=== PATIENT | male | born 1965 | race Two or more races ===

== ENCOUNTER 2016-11-30 13:58 | Emergency (ER) | payer OTHER ==
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
[2016-11-30 16:36] LABS: ABSOLUTE EOSINOPHILS # (AUTO) 0.4 10^3/uL (0.0-0.6); ABSOLUTE LYMPHOCYTES (AUTO) 1.4 10^3/uL (0.5-4.7); ABSOLUTE MONOCYTES (AUTO) 0.6 10^3/uL (0.1-1.4); ABSOLUTE NEUT (AUTO) 3.9 10^3/uL (1.7-8.2); BASOPHILS % (AUTO) 0.7 % (0-2); EOSINOPHILS % (AUTO) 6.5 % (0-6); HEMATOCRIT 42.7 % (37.9-51.0); HEMOGLOBIN 15.1 g/dL (13.5-17.0); HGB HCT DIFFERENCE 2.6; LYMPHOCYTES % (AUTO) 22.4 % (13-45); MEAN CORPUSCULAR HEMOGLOBIN 29.9 pg (27.0-33.4); MEAN CORPUSCULAR HGB CONC 35.4 g/dL (32.0-36.0); MEAN CORPUSCULAR VOLUME 84 fl (80-97); MONOCYTES % (AUTO) 9.2 % (3-13); RED BLOOD COUNT 5.05 10^6/uL (4.35-5.55); RED CELL DISTRIBUTION WIDTH 13.1 % (11.5-14.0); SEGMENTED NEUTROPHILS % (AUTO) 61.2 % (42-78); WHITE BLOOD COUNT 6.3 10^3/uL (4.0-10.5)
[2016-11-30 16:52] LABS: ANION GAP 16 (5-19); BLOOD UREA NITROGEN 15 mg/dL (7-20); CALCIUM 9.8 mg/dL (8.4-10.2); CARBON DIOXIDE 24 mmol/L (22-30); CHLORIDE 103 mmol/L (98-107); CREATINE KINASE 254 U/L (55-170); CREATININE RESULT 0.76 mg/dL (0.52-1.25); GLUCOSE 118 mg/dL (75-110); POTASSIUM 4.2 mmol/L (3.6-5.0); SODIUM 143.4 mmol/L (137-145)
[2016-11-30] MEDS ORDERED: NORMAL SALINE 1000 ML 1,000 ML IV ONE (18:02)
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
[2016-11-30 19:34] VITALS: BP 126/75
--- NOTE | 2016-11-30 19:53 | EKG REPORT ---
SEVERITY:- NORMAL ECG - SINUS RHYTHM : Confirmed by: Tom Major MD 30-Nov-2016 19:52:30
== END 2016-11-30 19:34 | disposition home or self-care (01) ==
LOC: ER 13:58
DX: R55 Syncope and collapse (principal); V89.2XXA Person injured in unspecified motor-vehicle accident, traffic, initial encounter
CPT/HCPCS: 93005; 99284; 96360; 36415; 82550; 85025; 80048; 84484; 71020; 93010; J7030

== ENCOUNTER 2020-08-21 12:52 | Emergency (ER) | payer OTHER ==
--- NOTE | 2020-08-21 13:58 | ER Document Report ---
ED Medical Screen (RME) - General Chief Complaint: Urinary Problem Stated Complaint: URINARY PROBLEM,FALL Time Seen by Provider: 08/21/20 13:50 Mode of Arrival: Ambulatory Information source: Patient Notes: Patient states he was getting out of the shower yesterday evening, slipped and fell hitting the toilet. Patient reports right lower back pain. Patient does report a history of chronic back pain although he had hematuria after the fall last night. Patient states today he did have some dysuria with voiding. Patient denies any nausea or vomiting. Patient states yesterday he did have some mild abdominal pain although that is gone at this time. Patient has a history of hypertension, previous kidney stones and is prediabetic. I have greeted and performed a rapid initial assessment of this patient. A comprehensive ED assessment and evaluation of the patient, analysis of test results and completion of the medical decision making process will be conducted by additional ED providers. TRAVEL OUTSIDE OF THE [place] IN LAST 30 DAYS: No - Related Data Allergies/Adverse Reactions: No Known Allergies Allergy (Verified 11/24/13 11:45) Past Medical History - Past Medical History Cardiac Medical History: Reports: Hx Hypertension Pulmonary Medical History: Reports: Hx Bronchitis Renal/ Medical History: Denies: Hx Peritoneal Dialysis GI Medical History: Reports: Hx Gastroesophageal Reflux Disease Past Surgical History: Reports: Hx Oral Surgery, Hx Orthopedic Surgery - bilat bunionectomy - Immunizations Hx Diphtheria, Pertussis, Tetanus Vaccination: No Physical Exam - Vital signs Vitals: Temp Pulse Resp BP Pulse Ox 98.3 F 80 18 155/81 H 96 08/21/20 13:19 08/21/20 13:19 08/21/20 13:19 08/21/20 13:19 08/21/20 13:19 - Back Back: Tender - Right lower lumbar tenderness, few scattered ecchymotic areas Course - Vital Signs Vital signs: Temp Pulse Resp BP Pulse Ox 98.3 F 80 18 155/81 H 96 08/21/20 13:19 08/21/20 13:19 08/21/20 13:19 08/21/20 13:19 08/21/20 13:19
[2020-08-21 16:27] LABS: ABSOLUTE EOSINOPHILS # (AUTO) 0.2 10^3/uL (0.0-0.6); ABSOLUTE LYMPHOCYTES (AUTO) 1.8 10^3/uL (0.5-4.7); ABSOLUTE MONOCYTES (AUTO) 0.3 10^3/uL (0.1-1.4); ABSOLUTE NEUT (AUTO) 2.4 10^3/uL (1.7-8.2); BASOPHILS % (AUTO) 0.6 % (0-2); EOSINOPHILS % (AUTO) 4.1 % (0-6); HEMATOCRIT 43.5 % (37.9-51.0); HEMOGLOBIN 15.6 g/dL (13.5-17.0); LYMPHOCYTES % (AUTO) 37.6 % (13-45); MEAN CORPUSCULAR HEMOGLOBIN 29.6 pg (27.0-33.4); MEAN CORPUSCULAR HGB CONC 35.9 g/dL (32.0-36.0); MEAN CORPUSCULAR VOLUME 82 fl (80-97); MONOCYTES % (AUTO) 6.8 % (3-13); PLATELET COUNT 176 10^3/uL (150-450); RED BLOOD COUNT 5.28 10^6/uL (4.35-5.55); RED CELL DISTRIBUTION WIDTH 12.8 % (11.5-14.0); SEGMENTED NEUTROPHILS % (AUTO) 50.9 % (42-78); TOTAL CELLS COUNTED % (AUTO) 100 %; WHITE BLOOD COUNT 4.7 10^3/uL (4.0-10.5)
[2020-08-21 16:46] LABS: ALBUMIN 4.1 g/dL (3.5-5.0); ALKALINE PHOSPHATASE 70 U/L (38-126); ANION GAP 6 (5-19); ASPARTATE AMINO TRANSFERASE 26 U/L (17-59); BILIRUBIN,DIRECT 0.1 mg/dL (0.0-0.4); BILIRUBIN,TOTAL 0.6 mg/dL (0.2-1.3); BLOOD UREA NITROGEN 15 mg/dL (7-20); CALCIUM 9.4 mg/dL (8.4-10.2); CARBON DIOXIDE 28 mmol/L (22-30); CHLORIDE 101 mmol/L (98-107); GLUCOSE 171 mg/dL (75-110); POTASSIUM 4.1 mmol/L (3.6-5.0); TOTAL PROTEIN 6.9 g/dL (6.3-8.2)
--- NOTE | 2020-08-21 18:30 | ER Document Report ---
ED GI/ - General Chief Complaint: Urinary Problem Stated Complaint: URINARY PROBLEM,FALL Time Seen by Provider: 08/21/20 13:50 Primary Care Provider: TEVIN HEBERT MD [Primary Care Provider] - Follow up as needed Mode of Arrival: Ambulatory Information source: Patient Notes: ED Medical Screen ([facility])) - General Chief Complaint: Urinary Problem Stated Complaint: URINARY PROBLEM,FALL Time Seen by Provider: 08/21/20 13:50 Mode of Arrival: Ambulatory Information source: Patient Notes: Patient states he was getting out of the shower yesterday evening, slipped and fell hitting the toilet. Patient reports right lower back pain. Patient does report a history of chronic back pain although he had hematuria after the fall last night. Patient states today he did have some dysuria with voiding. Patient denies any nausea or vomiting. Patient states yesterday he did have some mild abdominal pain although that is gone at this time. Patient has a history of hypertension, previous kidney stones and is prediabetic. 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 His pains are chronic and constant except ameliorated by Naprosyn which he takes daily. He had to have carpal tunnel surgery to his right wrist around 2 years ago and when he stopped this his pains became quite severe. Patient also has a history of pituitary tumor and he went to a male menopause problem more than a year ago with hot sweats and chills. Patient reports he has a history of kidney stones. He slipped and fell out of the shower yesterday grabbing hold of the curtains pulling them down from the angella and he landed on his buttocks on the bathroom toilet with his head striking the medicine cabinet. There is a wall between the bathroom and kitchen and his (who is in room now)was in the kitchen and heard the impact. He reports he has had at least 3 bouts of hematuria since this is occurred but his fourth and fifth yesterday was yellow urine. Today this morning around 1100 he had some urgency but hesitation on urination as if his urinary flow was blocked. He has to urinate at this time when I saw him at 1830. TRAVEL OUTSIDE OF THE [place] IN LAST 30 DAYS: No - HPI Patient complains to provider of: Hematuria, Other - head injury Onset: Yesterday Timing/Duration: Sudden, Persistent, Better Severity at maximum: Mild Severity in ED: Mild Pain Level: 1 Context: Recent trauma. denies: Bad food, Lifting, Location: Pelvis - Related Data Allergies/Adverse Reactions: No Known Allergies Allergy (Verified 11/24/13 11:45) Past Medical History - General Information source: Patient - Social History Smoking Status: Never Smoker Cigarette use (# per day): No Chew tobacco use (# tins/day): No Smoking Education Provided: No Frequency of alcohol use: None Drug Abuse: None Lives with: Family Family History: Malignancy - NOT GI Patient has suicidal ideation: No Patient has homicidal ideation: No - Past Medical History Cardiac Medical History: Reports: Hx Hypertension Pulmonary Medical History: Reports: Hx Bronchitis Renal/ Medical History: Denies: Hx Peritoneal Dialysis GI Medical History: Reports: Hx Gastroesophageal Reflux Disease Past Surgical History: Reports: Hx Oral Surgery, Hx Orthopedic Surgery - bilat bunionectomy - Immunizations Hx Diphtheria, Pertussis, Tetanus Vaccination: No Review of Systems - Review of Systems Constitutional: No symptoms reported EENT: No symptoms reported Cardiovascular: No symptoms reported Respiratory: No symptoms reported Gastrointestinal: No symptoms reported Genitourinary: No symptoms reported, See HPI, Hematuria Male Genitourinary: No symptoms reported Musculoskeletal: No symptoms reported Skin: No symptoms reported Hematologic/Lymphatic: No symptoms reported Neurological/Psychological: No symptoms reported Physical Exam - Vital signs Vitals: Temp 97.8 F 08/21/20 12:53 Interpretation: Hypertensive - General General appearance: Appears well, Alert - HEENT Head: Normocephalic, Atraumatic Eyes: Normal Pupils: PERRL - Respiratory Respiratory status: No respiratory distress Chest status: Nontender Breath sounds: Normal Chest palpation: Normal - Cardiovascular Rhythm: Regular Heart sounds: Normal auscultation Murmur: No - Abdominal Inspection: Normal Distension: No distension Bowel sounds: Normal Tenderness: Nontender Organomegaly: No organomegaly - Rectal Prostate: Other - deferred - Genitourinary Tenderness: Nontender - Back Back: Normal, Nontender - Extremities General upper extremity: Normal inspection, Nontender, Normal color, Normal ROM, Normal temperature General lower extremity: Normal inspection, Nontender, Normal color, Normal ROM, Normal temperature, Normal weight bearing. No: Liberty's sign - Neurological Neuro grossly intact: Yes Cognition: Normal Orientation: AAOx4 [place] Coma Scale Eye Opening: Spontaneous [place] Coma Scale Verbal: Oriented Jamal Coma Scale Motor: Obeys Commands [place] Coma Scale Total: 15 Speech: Normal Motor strength normal: LUE, RUE, LLE, RLE Sensory: Normal - Psychological Associated symptoms: Normal affect, Normal mood - Skin Skin Temperature: Warm Skin Moisture: Dry Skin Color: Normal Course - Vital Signs Vital signs: Temp Pulse Resp BP Pulse Ox 98.3 F 80 18 121/76 96 08/21/20 13:19 08/21/20 13:19 08/21/20 13:19 08/21/20 20:06 08/21/20 20:06 - Laboratory Results Result Diagrams: 08/21/20 15:51 08/21/20 15:51 Laboratory Results Interpreted: 08/21/20 08/21/20 15:51 20:09 Sodium 135.4 L Glucose 171 H Urine Glucose (UA) 50 H Ur Leukocyte Esterase TRACE H Critical Laboratory Results Reviewed: Yes Attending or Supervising Physician who Reviewed Labs: TEVIN MIGUEL JR - Radiology Results Radiology Results Interpreted: 08/21/20 20:20 shaji murray and chinmay radiologist read the CT scans 08/21/20 20:21 Critical Radiology Results Reviewed: No Critical Results Attending or Supervising Physician who Reviewed Radiology: TEVIN MIGUEL JR Critical Care Note - Critical Care Note Comments: I discussed findings with patient and appears to understand. was in room and appears to understand this as well. Discharge - Discharge Clinical Impression: UTI (urinary tract infection) Hematuria Qualifiers: Hematuria type: unspecified type Qualified Code(s): R31.9 - Hematuria, unspecified Condition: Stable Disposition: HOME, SELF-CARE Additional Instructions: Follow-up with personal doctor and urologist. Return to ER as needed. Take medicines as directed. Encourage fluids. Prescriptions: Cephalexin Monohydrate [Keflex 500 mg Capsule] 500 mg PO TID 5 Days #15 capsule Referrals: TEVIN HEBERT MD [Primary Care Provider] - Follow up as needed
--- NOTE | 2020-08-21 18:52 | RADIOLOGY REPORT (SQ) ---
EXAM DESCRIPTION: CT ABD/PELVIS WITH IV ONLY IMAGES COMPLETED DATE/TIME: 08/21/2020 6:24 pm REASON FOR STUDY: fall, back pain, +hematuria COMPARISON: 2015. TECHNIQUE: CT scan of the abdomen and pelvis performed using helical scanning technique with dynamic intravenous contrast injection. No oral contrast. Images reviewed with lung, soft tissue, and bone windows. Reconstructed coronal and sagittal MPR images reviewed. Delayed images for evaluation of the urinary system also acquired. All images stored on PACS. All CT scanners at this facility use dose modulation, iterative reconstruction, and/or weight based d osing when appropriate to reduce radiation dose to as low as reasonably achievable (ALARA). [facility]: Dose Right [facility]: CareDose [facility]: Dose Right [facility]: Teradose 4D [facility]: Levels Beyond CONTRAST TYPE AND DOSE: contrast/concentration: Isovue 350.00 mmol/ml; Total Contrast Delivered: 99. 0 ml; Total Saline Delivered: 66.0 ml RENAL FUNCTION: GFR > 60. RADIATION DOSE: CT Rad equipment meets quality standard of care and radiation dose reduction techniq ues were employed. CTDIvol: 14.2 - 14.2 mGy. DLP: 1880 mGy-cm.. LIMITATIONS: None. FINDINGS: LOWER CHEST: Small hiatal hernia. Clear lung bases. LIVER: Hepatic steatosis. Several tiny probable cysts. No evidence of laceration. SPLEEN: No evidence of splenic injury or mass. PANCREAS: No masses. No significant calcifications. No adjacent inflammation or peripancreatic fluid collections. Pancreatic duct not dilated. GALLBLADDER: No identified stones by CT criteria. No inflammatory changes to suggest cholecystitis. ADRENAL GLANDS: No significant masses or asymmetry. RIGHT KIDNEY AND URETER: No solid masses. No significant calcification. No hydronephrosis or hydroure ter. No evidence of renal parenchymal injury or perinephric hematoma. LEFT KIDNEY AND URETER: 1.6 cm posterior mildly exophytic chronic lesion with increased Hounsfield un its (mid 40s). Probable hemorrhage into a pre-existing cyst based on comparison to prior. No eviden ce of renal parenchymal injury or perinephric hematoma. AORTA AND VESSELS: No aneurysm. No dissection. Renal arteries, SMA, celiac without stenosis. RETROPERITONEUM: No retroperitoneal adenopathy, hemorrhage or masses. BOWEL AND PERITONEAL CAVITY: No masses or inflammatory changes. No free fluid or peritoneal masses. APPENDIX: Normal. PELVIS: No mass. No free fluid. Normal bladder. ABDOMINAL WALL: No masses. No hernias. BONES: No significant or acute findings. OTHER: No other significant finding. IMPRESSION: 1. No acute injury to the abdomen or pelvis appreciated. No solid organ laceration. No ascites or a bnormal gas. 2. Small chronic exophytic mass off the posterior left renal pole. This is probably a chronic cyst c omplicated by mild hemorrhage. No suspicious findings for renal injury otherwise. 3. Bones are intact. No fracture detected. TECHNICAL DOCUMENTATION: JOB ID: [id number] Quality ID # 436: Final reports with documentation of one or more dose reduction techniques (e.g., Au tomated exposure control, adjustment of the mA and/or kV according to patient size, use of iterative reconstruction technique) 2010 [employer]- All Rights Reserved Reading location - IP/workstation name: [email or web address]
--- NOTE | 2020-08-21 19:56 | RADIOLOGY REPORT (SQ) ---
EXAM DESCRIPTION: CT HEAD WITHOUT IMAGES COMPLETED DATE/TIME: 08/21/2020 4:46 pm REASON FOR STUDY: head injury COMPARISON: None. TECHNIQUE: Axial images acquired through the brain without intravenous contrast. Images reviewed wi th bone, brain and subdural windows. Additional sagittal and coronal reconstructions were generated. Images stored on PACS. All CT scanners at this facility use dose modulation, iterative reconstruction, and/or weight based d osing when appropriate to reduce radiation dose to as low as reasonably achievable (ALARA). [facility]: Dose Right [facility]: CareDose [facility]: Dose Right [facility]: Teradose 4D [facility]: Smart [employer] RADIATION DOSE: CT Rad equipment meets quality standard of care and radiation dose reduction techniq ues were employed. CTDIvol: 53.2 mGy. DLP: 964 mGy-cm. mGy. LIMITATIONS: Patient had contrast approximately 1 hour prior to this examination for abdomen and pel vis CT. FINDINGS: VENTRICLES: Normal size and contour. CEREBRUM: No masses. No definite acute intracranial hemorrhage identified given the limitations of t he exam. No midline shift. No evidence for acute infarction. Normal patiño/white matter differentiati on. No areas of low density in the white matter. CEREBELLUM: No masses. No hemorrhage. No alteration of density. No evidence for acute infarction. EXTRAAXIAL SPACES: No fluid collections. No masses. ORBITS AND GLOBE: No intra- or extraconal masses. Normal contour of globe without masses. CALVARIUM: No fracture. PARANASAL SINUSES: Mild mucosal thickening involving the ethmoid air cells bilaterally. Probable par tially visualized mucosal retention cyst in the left maxillary sinus. SOFT TISSUES: No mass or hematoma. OTHER: No other significant finding. IMPRESSION: No acute intracranial abnormality identified within the limitations of the examination. EVIDENCE OF ACUTE STROKE: NO. COMMENT: Quality ID # 436: Final reports with documentation of one or more dose reduction techniques (e.g., Automated exposure control, adjustment of the mA and/or kV according to patient size, use of iterative reconstruction technique) TECHNICAL DOCUMENTATION: JOB ID: [id number] 2010 [employer]- All Rights Reserved Reading location - IP/workstation name: [email or web address]
[2020-08-21 20:13] VITALS: BP 121/76
[2020-08-21 20:37] LABS: APPEARANCE,URINE CLEAR; BILIRUBIN,URINE NEGATIVE (NEGATIVE); COLOR,URINE YELLOW; GLUCOSE, URINE 50 mg/dL (NEGATIVE); KETONES,URINE NEGATIVE (NEGATIVE); LEUKOCYTE ESTERASE,URINE TRACE (NEGATIVE); NITRITE,URINE NEGATIVE (NEGATIVE); PROTEIN,URINE NEGATIVE (NEGATIVE); URINE SPECIFIC GRAVITY 1.041; UROBILINOGEN,URINE NEGATIVE mg/dL (<2.0)
[2020-08-21] MEDS ORDERED: CEPHALEXIN 500 MG CAPSULE PO ONE (20:54)
== END 2020-08-21 21:13 | disposition home or self-care (01) ==
LOC: ER 12:52
DX: N39.0 Urinary tract infection, site not specified (principal); R31.9 Hematuria, unspecified; G89.29 Other chronic pain; M54.5 Low back pain; R30.0 Dysuria; I10 Essential (primary) hypertension
CPT/HCPCS: 36415; 70450; 74177; 80053; 81001; 85025; 99285